=== PATIENT | male | born 1950 | race Caucasian/White ===

== ENCOUNTER 2018-10-26 09:47 | Inpatient (IN) ==
--- NOTE | 2018-09-24 12:32 | Anesthesiology Consultation ---
Date of Service September 24, 2018 Assessment & Plan (1) Encounter for pre-operative examination: Chart Review Chart Review: Acceptable Risk for Surgery and Patient seen in Pre Admission Testing Teaching & Discussion Pre-Anesthesia Teaching/Discussion Notes: Instructed NPO after midnight before surgery,except medications with 15 cc of water. Medication instructions provided according to the PAT guidelines. History Surgery Operation Date: 10/26/18 07:00 Proposed Procedures p Left Reverse Total Shoulder Replacement - Miki Dash DO Height/Weight Height: 6 ft Weight: 102.8 kg Allergies Allergy/AdvReac Type Severity Reaction Status Date / Time No Known Allergies Allergy Mild Verified 09/19/18 14:46 Medications Home Medications Medication Instructions Recorded Confirmed Last Taken No Known Home Medications 09/19/18 09/19/18 Unknown Past Medical History Medical History Left shoulder pain Exercise / Class Metabolic Activity II 4-5 Yardwork/Stairs/Walk up hill Past Family History Family History Other No significant family history Past Surgical History Surgical History History of tooth extraction Presence of tooth-root and mandibular implants Past Anesthesia History No Family Hx of Anesthesia Complications Per patient, he states he thinks he had a breathing tube for his wisdom teeth extraction and subsequently had a sore throat and snoring issues. Sore throat re solved but still has issues with snoring. He states he has not mentioned this to PCP. History of PONV No Hx of PONV and No Hx of Motion Sickness Social History Smoking Status: Former smoker tobacco type: cigarettes Do You Dip or Chew Tobacco: No Smoking End Date: QUIT 1996; LIGHT USE PRIOR TO QUITING Hx Alcohol Use: Yes Alcohol type: beer alcohol intake frequency: a few times a week Hx Substance Use: No substance use type: does not use Review of Systems Patient denies chest pain, shortness of breath, dyspnea on exertion, reflux, cough, wheezing, palpitations. Physical Exam Vital Signs VITALS BP 136/78 P 68 TEMP 97.9 SP02 98%RA RESP 16 PHYSICAL Full neck and c-spine range of motion. Full TMJ range of motion. TMD 3.5 finger breaths Mallampati Score 2 Dentition: missing molars, teeth implants lower front/upper side, upper right side "broken teeth" Lungs: clear throughout to auscultation Cardiac: regular rate and rhythm, no murmurs noted Spine: normal Carotid arteries: negative bruit Extremities: no edema Testing Laboratory Results 09/24/18 13:14 09/24/18 13:14 PT 10.3 Seconds (9.0-12.0) 09/24/18 13:14 INR 1.0 (0.9-1.1) 09/24/18 13:14 APTT 28.2 Seconds (21.0-31.0) 09/24/18 13:14 Blood Type O Positive 09/24/18 13:14 Antibody Screen NEGATIVE 09/24/18 13:14 Electrocardiogram Date: 09/24/18 Findings: + NSR @ (68) Chest X-Ray Date: 09/24/18 Mild cardiomegaly. No convincing evidence of acute cardiopulmonary disease.
--- NOTE | 2018-09-24 13:38 | XRay Report ---
XR chest Pre-admission PA/Lat CLINICAL HISTORY: 68 years-old Male presenting with preoperative assessment. TECHNIQUE: PA and lateral views of the chest were obtained. COMPARISON: None. FINDINGS: Cardiac silhouette mildly enlarged. Lungs and pleural spaces clear. Degenerative changes of the thora cic spine. Upper abdomen normal. IMPRESSION: 1. Mild cardiomegaly. No convincing evidence of acute cardiopulmonary disease. Electronically signed by: Irvin Gonzales M.D. 09/24/2018 1:37 PM
[2018-09-24 14:51] LABS: Basophils # (auto) 0.02 K/uL (0-0.2); Basophils % (auto) 0.3 %; Eosinophils # (auto) 0.16 K/uL (0-0.5); Eosinophils % (auto) 2.7 %; Hematocrit (blood only) 42.7 % (42-52); Hemoglobin 14.5 g/dL (14.0-18.0); Immature Granulocytes # (auto) 0.02 K/uL (0.00-0.02); Immature Granulocytes % (auto) 0.3 %; Lymphocytes # (auto) 1.71 K/uL (1.2-3.4); Lymphocytes % (auto) 28.5 %; Mean Corpuscular Volume 95.3 fL (80-100); Mean Platelet Volume 10.6 fL (7.4-10.4); Monocytes # (auto) 0.44 K/uL (0.11-0.59); Monocytes % (auto) 7.3 %; Neutrophils # (auto) 3.66 K/uL (1.4-6.5); Neutrophils % (auto) 60.9 %; Platelet Count 229 K/uL (130-400); RDW Coefficient of Variation 12.5 % (11.5-14.5); RDW Standard Deviation 43.3 fL (36.4-46.3); Red Blood Count 4.48 M/uL (4.7-6.1); White Blood Count 6.01 K/uL (4.8-10.8)
[2018-09-24 14:59] LABS: BUN Creatinine Ratio 26.6 (10-20); Calcium 9.4 mg/dl (8.5-10.1); Creatinine Clr Calc Pharmacy 84.2 ml/min; Est GFR (African American) 83.4; Potassium 4.7 mmol/L (3.5-5.1)
[2018-09-24 15:05] LABS: Partial Thromboplastin Time 28.2 Seconds (21.0-31.0); Prothrombin Time 10.3 Seconds (9.0-12.0)
--- NOTE | 2018-10-23 07:19 | History & Physical Report ---
Date of Service October 23, 2018 Assessment & Plan (1) Chronic dislocation of left shoulder: We will proceed with a left reverse shoulder arthroplasty. Postoperatively he will be placed in an arm sling and kept overnight in the hospital for postoperative medical management. He plans to go to outpatient physical therapy in [place] upon discharge. Present on Admission?: Yes History of Present Illness Chief Complaint: Chronic anterior dislocation of the left shoulder Primary Care Provider: NO PCP Jake is a pleasant 68-year-old male who fell down the stairs in January 2018. He went to a chiropractor. Unfortunately the chiropractor did not peanut picker the anterior dislocation of the shoulder. He is been having chronic pain since. He saw an orthopedist in [place] who got an MRI of his shoulder. The MRI showed a chronic anterior dislocation with minimal bone loss. His cuff was intact. He is very poor range of motion. After extensive discussions in our office, he has elected to proceed with a left reverse shoulder arthroplasty. Allergies Allergy/AdvReac Type Severity Reaction Status Date / Time No Known Allergies Allergy Mild Verified 09/19/18 14:46 Home Medications Home Medications Medication Instructions Recorded Confirmed Type No Known Home Medications 09/19/18 09/19/18 History Past Med/Surg History Medical History Left shoulder pain Surgical History History of tooth extraction Presence of tooth-root and mandibular implants Family History Other No significant family history Social History Preferred Language: Yakut Communication Ability: Effective Quality Systems Technician Required: No Beliefs That Will Affect Care: None Current Living Situation: Spouse Other Information That Helps Us Care for You: No Feels Safe at Home: Yes Safety Concerns: Feels Safe At This Time Smoking Status: Former smoker Tobacco Type: cigarettes Do You Dip or Chew Tobacco: No Smoking End Date: QUIT 1996; LIGHT USE PRIOR TO QUITING Second Hand Exposure: No Tobacco Cessation Education Requested by Patient: No Hx Alcohol Use: Yes Alcohol type: beer Hx Substance Use: No Review of Systems All systems reviewed & are unremarkable except as noted in HPI & below Physical Exam Constitutional: WD/WN, vitals as above Eyes: PERRL, conjunctivae normal, anicteric sclerae ENMT: external ear and nose normal, oropharynx normal Neck: trachea midline, no thyromegaly Respiratory: normal respiratory effort Cardiovascular: RRR, no murmur, no edema Gastrointestinal (Abdomen): normal bowel sounds, soft, nontender, no hepatosplenomegaly Musculoskeletal: Physical examination of the left shoulder he only has about 20 degrees of forward elevation and 20 degrees of abduction. He has full range of motion of his elbow. I am unable to do any other testing with his shoulder. He appears to be neurovascularly intact. He is axillary nerve is intact bilateral sensation. Psychiatric: A+Ox3, euthymic affect Results & Data Diagnostic Findings Radiographs of the left shoulder show a chronic left anterior shoulder dislocation
--- NOTE | 2018-10-26 09:37 | History & Physical Bridge Note ---
Date of Service October 26, 2018 History & Physical Bridge Note I have examined the patient, reviewed the History & Physical and in the interval since the performance of the History & Physical I have noted the following changes of clinical significance: no changes noted
[~2018-10-26 09:47] MED LIST: ACETAMINOPHEN 500 MG TAB PO SCH; BUPIVACAINE 0.5 % 5 MG/1 ML PF 10ML VIAL ONE; CEFAZOLIN 2000MG 2,000 MG/15 ML SYR IV SCH; FAMOTIDINE 20 MG TAB PO SCH; GABAPENTIN 300 MG CAP PO SCH; LR 15ML/HR IV SCH; LR 60ML/HR IV SCH; ROPIVACAINE 0.5% 5 MG/ML 30 ML VIAL ONE; ROPIVACAINE 0.5% HCL/PF 150 MG, BUPIVACAINE 0.5% MPF 30 ML, EPINEPHrine 30MG/30ML (OR U... INSTIL SCH; TRANEXAMIC ACID 1,000 MG **IV Intra-op IV SCH; TRANEXAMIC ACID 1,000 MG **IV Pre-op IV SCH
[2018-10-26] MEDS ORDERED: ONDANSETRON INJ 2 MG/ML 2 ML VIAL ONE (10:18)
[2018-10-26] MEDS ORDERED: NEOSTIGMINE METHYLSULFATE 5 MG/5 ML SYR ONE (10:18)
[2018-10-26] MEDS ORDERED: DEXAMETHASONE SOD INJ 4 MG/ML VIAL ONE (10:18)
[2018-10-26] MEDS ORDERED: MIDAZOLAM HCL 1 MG/ML 2ML VIAL ONE (10:18)
[2018-10-26] MEDS ORDERED: fentaNYL citrate 100 MCG/2 ML VIAL ONE (10:18)
[2018-10-26] MEDS ORDERED: PROPOFOL IV EMULSION 10 MG/ML 20 ML VIAL IV ONE (10:18)
[2018-10-26] MEDS ORDERED: GLYCOPYRROLATE 0.2 MG/ML VIAL ONE (10:18)
[2018-10-26] MEDS ORDERED: LIDOCAINE HCL 2% 2 ML VIAL/AMP(20MG/ML) INFIL ONE (10:18)
[2018-10-26] MEDS ORDERED: ATROPINE SULFATE 0.1 MG/ML 10ML SYR IV PRN (10:47)
[2018-10-26] MEDS ORDERED: ePHEDrine sulfate 50 MG/ML AMP IV PRN (10:47)
[2018-10-26] MEDS ORDERED: ONDANSETRON INJ 2 MG/ML 2 ML VIAL IV PRN ×2 (10:47→15:20)
[2018-10-26] MEDS ORDERED: fentaNYL citrate 100 MCG/2 ML VIAL IV PRN (10:47)
[2018-10-26] MEDS ORDERED: ORTHO JOINT ANESTHETIC ONE (11:05)
[2018-10-26] MEDS ORDERED: ePHEDrine sulfate 50 MG/ML SYR ONE (12:24)
[2018-10-26] MEDS ORDERED: ROCURONIUM BROMIDE 10 MG/ML 5 ML VIAL ONE (13:52)
--- NOTE | 2018-10-26 13:53 | Operative Report ---
Post Operative Report Pre & Post Diagnosis Operation Date: 10/26/18 11:30 Pre-Op Diagnosis: CHRONIC DISLOCATION LEFT SHOULDER Post-Op Diagnosis: CHRONIC DISLOCATION LEFT SHOULDER Procedure Operation Date: 10/26/18 11:30 Actual Procedures p Left Reverse Total Shoulder Replacement(Left) - Miki Dash DO Surgeon Miki Dash DO Marketing Teacher Miki Cope PAC Estimated Blood Loss 250 Findings Consistent with Post-Op Diagnosis Specimens Left humeral head Complications none Disposition Disposition: Recovery Room Indications Jake is a pleasant 68-year-old male who presented my office with a 6-month history of a chronic left anterior shoulder dislocation. He fell down the [employer] and was followed by a chiropractor. Unfortunately he failed to improve. After discussions in the office, he elected to proceed with a left reverse shoulder arthroplasty. Description of Procedure This case took about 50% longer than a standard reverse shoulder arthroplasty. Significant time was spent doing soft tissue releases. Tensioning and balancing was extremely difficult. This is all due to the nature of a chronic anterior dislocation. Implants used: I used a [employer] Comprehensive reverse total shoulder arthroplasty system with a size 12 press fit mini humeral stem, a standard humeral tray and a +3 retentive humeral bearing, a 25 mm mini baseplate with a 6.5 mm central screw and superior and inferior locking screws, and a size 36 mm eccentric glenosphere. The patient arrived at [facility] for the above procedure. There were seen in the preoperative holding area and the operative extremity was identified and signed. They were given a preoperative antibiotic and an interscalene nerve block. They were taken back to the operating room, laid on table in supine position, and put under general anesthesia. They were then put into the beachchair position. The shoulder was then prepped and draped in sterile fashion. A timeout was done and the patient in the operative extremity was properly identified. A deltopectoral approach was used. Dissection was taken down through the fascia and the deltoid was retracted laterally and the conjoined tendon was retracted medially. The anterior shoulder was exposed. The long head of the biceps tendon was tenodesed to the upper border of the pectoralis major. The subscapularis was then released off the lesser tuberosity with a centimeter of cuff tissue remaining. The inferior capsule was released and the humeral head was dislocated. A canal finding reamer was sent down the center of the humeral canal. Sequential reaming up to a size 12 reamer was done. Off that reamer, a proximal humeral resection guide was placed. The proximal humerus was resected at 135 of inclination and 25 of retroversion. Osteophytes were then removed and the glenoid was exposed. Time was spent doing a complete capsular and labral release. This soft tissue release took a significant amount of time due to the chronic anterior dislocation. The glenoid guide was then placed in the inferior aspect of the glenoid. A 3.2 mm Steinmann pin was then placed into the glenoid vault at 10 of inclination. The glenoid baseplate was then reamed. The final size 25 mm mini baseplate was then impacted in the place. A 6.5 mm central screw was then placed followed by superior,anterior, and inferior locking screws. A 36 mm eccentric glenoid sph ere was then impacted into place. Surrounding soft tissues were then injected with 100 cc an orthopedic pain control cocktail. The proximal humerus was then exposed. Sequential broaching of the humerus up to a size 12 broach was done. Off that broach a +3 retentive humeral tray was trialed. The shoulder was then reduced, brought through a full range of motion and felt to be stable. The shoulder was then dislocated and the broach was removed. The final size 12 mini press-fit humeral stem was then impacted into place. A +3 retentive humeral bearing was then snapped onto a standard humeral tray and the ring-lock mechanism was engaged. The humeral tray was then impacted onto the humeral stem. The shoulder was once again reduced, brought through a full range of motion and felt to be stable. The subscapularis was then tenodesed back to the lesser tuberosity with transosseous FiberWire sutures and side to side sutures with the arm in 45 of external rotation. A dilute betadyne lavage was then done for 3 minutes. The joint was then irrigated with normal saline solution. Hemostasis was obtained. The skin was then closed with 2-0 Vicryl, 3-0V lock suture, and marilyn. A soft dressing and a regular arm sling was placed. The patient was then extubated and transferred to a hospital bed. They were taken to the postanesthesia care unit in stable condition. They tolerated the procedure well. I attest to the content of the Intraoperative Record and any orders documented therein. Any exceptions are noted below.
--- NOTE | 2018-10-26 14:52 | XRay Report ---
XR shoulder LT min 2V routine CLINICAL HISTORY: Post shoulder surgery COMPARISON STUDY: None. FINDINGS: Status post reverse left total shoulder arthroplasty. The hardware appears intact. No fract ure or dislocation. Skin marilyn are in place. Gas within the joint space is likely postsurgical. IMPRESSION: Status post reverse left total shoulder arthroplasty. No evidence for hardware complicat ion. Electronically signed by: Jorge Alberto Weldon M.D. 10/26/2018 2:51 PM
[2018-10-26] MEDS ORDERED: NALOXONE HCL 0.4 MG/1 ML VIAL/CARP IV PRN (15:20)
[2018-10-26] MEDS ORDERED: SODIUM CHLORIDE 0.9% 1000ML 1,000 ML IV SCH (15:20)
[2018-10-26] MEDS ORDERED: MAGNESIUM HYDROXIDE SUSP 30 ML UDC PO PRN (15:20)
[2018-10-26] MEDS ORDERED: BISACODYL 10 MG SUPP PR PRN (15:20)
[2018-10-26] MEDS ORDERED: METOCLOPRAMIDE HCL INJ 5 MG/ML 2 ML VIAL IV PRN (15:20)
[2018-10-26] MEDS ORDERED: OXYCODONE HCL IR 5 MG TAB (IMMEDIATE RELEASE) PO PRN (15:20)
--- NOTE | 2018-10-26 16:18 | Anesthesiology Progress Note ---
Date of Service October 26, 2018 Anesthesia Post Procedure Vital Signs Vital Signs: Temp Pulse Resp BP Pulse Ox 10/26/18 15:48 97.5 F L 69 15 117/66 95 10/26/18 15:20 97.7 F 74 15 119/65 94 10/26/18 15:10 97.5 F L 70 15 113/61 95 10/26/18 15:00 72 15 121/68 95 10/26/18 14:50 73 18 116/66 96 10/26/18 14:40 73 15 131/73 99 10/26/18 14:30 70 15 109/62 99 10/26/18 14:20 96.8 F L 62 12 121/59 L 97 10/26/18 10:28 97.9 F 78 18 168/79 H 98 Transfer of Care Handoff Completed per policy Notes Mental Status: alert / awake / arousable and participated in evaluation Patient Amnestic to Procedure: Yes Nausea / Vomiting: adequately controlled Pain: adequately controlled Airway Patency, RR, SpO2: stable & adequate BP & HR: stable & adequate Hydration State: stable & adequate Anesthetic Complications: no major complications apparent and Pt Satisfied with anesthetic care
[2018-10-26] MEDS: KETOROLAC TROMETHAMINE 15 MG/ML VIAL IV SCH ×2 (17:12→21:36)
[2018-10-26] MEDS: ACETAMINOPHEN 1,000 MG/100 ML VIAL IV SCH (20:32)
[2018-10-26] MEDS: CEFAZOLIN 2000MG 2,000 MG/15 ML SYR IV SCH (20:32)
[2018-10-26] MEDS: DOCUSATE SODIUM 100 MG CAP PO SCH (20:32)
[2018-10-26] MEDS ORDERED: SENNA 8.6 MG TAB PO SCH (21:00)
[2018-10-27] MEDS: KETOROLAC TROMETHAMINE 15 MG/ML VIAL IV SCH ×2 (04:06→08:29)
[2018-10-27] MEDS: ACETAMINOPHEN 1,000 MG/100 ML VIAL IV SCH ×2 (04:06→11:48)
[2018-10-27] MEDS: CEFAZOLIN 2000MG 2,000 MG/15 ML SYR IV SCH (04:07)
[2018-10-27 06:36] LABS: Basophils # (auto) 0.01 K/uL (0-0.2); Basophils % (auto) 0.1 %; Hematocrit (blood only) 39.4 % (42-52); Hemoglobin 13.3 g/dL (14.0-18.0); Immature Granulocytes # (auto) 0.02 K/uL (0.00-0.02); Immature Granulocytes % (auto) 0.1 %; Lymphocytes % (auto) 6.5 %; Mean Corpuscular Hgb Conc 33.8 g/dL (32-36); Mean Corpuscular Volume 95.2 fL (80-100); Monocytes # (auto) 0.99 K/uL (0.11-0.59); Monocytes % (auto) 7.1 %; Neutrophils # (auto) 11.94 K/uL (1.4-6.5); Neutrophils % (auto) 86.2 %; Platelet Count 221 K/uL (130-400); RDW Coefficient of Variation 12.6 % (11.5-14.5); RDW Standard Deviation 43.6 fL (36.4-46.3); Red Blood Count 4.14 M/uL (4.7-6.1); White Blood Count 13.86 K/uL (4.8-10.8)
[2018-10-27 07:03] LABS: BUN Creatinine Ratio 17.3 (10-20); Calcium 8.4 mg/dl (8.5-10.1); Creatinine Clr Calc Pharmacy 83.1 ml/min; Est GFR (African American) 81.5; Est GFR (Non-African American) 70.4; Potassium 4.2 mmol/L (3.5-5.1)
[2018-10-27] MEDS: DOCUSATE SODIUM 100 MG CAP PO SCH (08:28)
[2018-10-27] MEDS ORDERED: MULTIVITAMIN TAB PO SCH (09:00)
--- NOTE | 2018-10-27 09:17 | Orthopedic Progress Note ---
Date of Service October 27, 2018 Assessment & Plan (1) Chronic dislocation of left shoulder: Overall is doing very well. Is not have any pain in the left shoulder. He will be seen by physical therapy this morning for ambulation and range of motion exercises. He can be discharged home later today. He will follow-up with orthopedics in 2 weeks. Present on Admission?: Yes Subjective Jake was seen and examined at bedside this morning. Overall he is doing very well. Is not having any pain in the left shoulder. He was able to get some sleep last night. He has no complaints. Physical Exam Musculoskeletal: On physical examination of the left shoulder, the dressing is clean and dry. He is wearing his sling as instructed. His radial, median, and ulnar nerves are checked and intact his wrist. His axillary nerve was not checked yet. Results & Data Vital Signs (Past 12 Hours) Vital Signs Temp Pulse Resp BP Pulse Ox 10/27/18 07:44 36.8 C 68 20 130/78 98 10/27/18 03:59 36.5 C 70 18 103/60 96 10/26/18 23:35 36.5 C 63 18 111/65 93 Laboratory Results H & H 09/24/18 10/27/18 Range/Units 13:14 06: Hgb 14.5 13.3 L (14.0-18.0) g/dL Hct 42.7 39.4 L (42-52) % Coagulation 09/24/18 Range/Units 13:14 INR 1.0 (0.9-1.1) Diagnostic Findings Postoperative x-rays of the left shoulder show the prosthesis to be in anatomic alignment without any evidence of fracture, dislocation, or loosening.
--- NOTE | 2018-10-27 09:18 | Discharge Summary ---
Date of Service October 27, 2018 Admission HPI Per Admitting Provider Jake is a pleasant 68-year-old male who fell down the stairs in January 2018. He went to a chiropractor. Unfortunately the chiropractor did not pick pack worker the anterior dislocation of the shoulder. He is been having chronic pain since. He saw an orthopedist in [place] who got an MRI of his shoulder. The MRI showed a chronic anterior dislocation with minimal bone loss. His cuff was intact. He is very poor range of motion. After extensive discussions in our office, he has elected to proceed with a left reverse shoulder arthroplasty. Specialty Data Orthopedic H & H 09/24/18 10/27/18 Range/Units 13:14 06:26 Hgb 14.5 13.3 L (14.0-18.0) g/dL Hct 42.7 39.4 L (42-52) % Coagulation 09/24/18 Range/Units 13:14 INR 1.0 (0.9-1.1) Discharge Data Consultations 10/26/18 15:20 Consult Case Management - Discharge Planning Routine Procedures Performed Operation Date: 10/26/18 11:30 Actual Procedures p Left Reverse Total Shoulder Replacement(Left) - Miki Dash DO Hospital Course (1) Chronic dislocation of left shoulder: On October 26, 2018 Jake arrived at [facility] and underwent a left reverse shoulder arthroplasty without complication. He had a general anesthetic and a left interscalene nerve block. Postoperatively he was placed in a sling and discharged to general orthopedic floors. His hospital course was uneventful. On postop day #1 his H&H was stable and his pain was well co ntrolled. He was able to participate well with physical therapy doing range of motion exercises. He was then discharged home with oral pain medications. He will follow-up with orthopedics in 2 weeks. Discharge Instructions Home Medications Medication Instructions Recorded Confirmed No Known Home Medications 09/19/18 10/26/18 Previous Rx's Medication Instructions Recorded oxycodone 5 mg PO Q4H PRN #40 tab 10/27/18
[2018-10-27] MEDS ORDERED: ACETAMINOPHEN 500 MG TAB PO SCH (22:00)
== END 2018-10-27 14:11 | disposition home or self-care (01) | DRG 483 ==
LOC: ASU 09:47 → 3E 14:20